=== PATIENT | female | born 2000 | race Caucasian/White ===

== ENCOUNTER 2024-11-30 13:52 | Outpatient (CLI) | payer BC, SELFPAY | END 2024-11-30 13:53 | disposition home or self-care (01) | PROVIDERS: Visit Provider Family Medicine | DX: R63.5 Abnormal weight gain (principal); R53.83 Other fatigue; F41.9 Anxiety disorder, unspecified; Z13.6 Encounter for screening for cardiovascular disorders | CPT/HCPCS: 80053; 80061; 84443 ==

== ENCOUNTER 2024-12-28 13:14 | Outpatient (CLI) | payer BC, SELFPAY ==
[2024-12-28 15:36] LABS: Chlamydia DNA Amplified* NOT DETECTED (No Detected); GC DNA Amplified* NOT DETECTED (No Detected)
[2024-12-29 23:48] LABS: HPV Source Cervical/Vag
[2025-01-09 10:35] LABS: Pap Test Reviewed by Pathologi Done; Pap Test Screened Manually Done
== END 2024-12-28 13:15 | disposition home or self-care (01) ==
PROVIDERS: PCP Family Medicine; Visit Provider Family Medicine
DX: Z11.3 Encounter for screening for infections with a predominantly sexual mode of transmission (principal); Z12.4 Encounter for screening for malignant neoplasm of cervix
CPT/HCPCS: 87491; 87591; 87624; 87625; 88141; 88142; 88175

== ENCOUNTER 2025-02-01 15:15 | Outpatient (CLI) | payer BC, SELFPAY ==
[2025-02-04 04:08] LABS: HPV Source Cervical/Vag
[2025-02-07 10:59] LABS: Pap Test Digital Imaging Done
== END 2025-02-01 15:16 | disposition home or self-care (01) ==
PROVIDERS: PCP Family Medicine; Visit Provider Family Medicine
DX: Z12.4 Encounter for screening for malignant neoplasm of cervix (principal)
CPT/HCPCS: 87624; 87625; 88141; 88142; 88175